=== PATIENT | female | born 1950 | race Caucasian/White ===

== ENCOUNTER 2017-03-12 10:15 | Emergency (ER) | payer MEDICARE, BC ==
[~2017-03-12] VITALS: Ht 157.5 cm; Wt 71.3 kg
[2017-03-12] MEDS ORDERED: KETOROLAC 30 MG/1 ML ONE (10:47)
[2017-03-12] MEDS ORDERED: FENTANYL PF 100 MCG/2ML ONE (10:47)
[2017-03-12] MEDS ORDERED: ONDANSETRON 2MG/ML, 2ML ONE (10:48)
[2017-03-12] MEDS ORDERED: SODIUM CHLORIDE 0.9% 1,000ML IVBOLUS ONE (11:00)
[2017-03-12] MEDS ORDERED: SODIUM CHLORIDE FLUSH 10ML SYR IVF ONE (11:00)
[2017-03-12] MEDS ORDERED: FENTANYL PF 100 MCG/2ML IVPush PRN (11:00)
[2017-03-12] MEDS ORDERED: KETOROLAC 30 MG/1 ML IVPush ONE (11:00)
[2017-03-12] MEDS ORDERED: ONDANSETRON 2MG/ML, 2ML IVPush ONE (11:00)
[2017-03-12 11:14] LABS: ASPARTATE AMINO TRANSFERASE 7 U/L (15-37); BLOOD UREA NITROGEN 19 mg/dL (7-18)
[2017-03-12] MEDS ORDERED: ACET250T2 PO (11:14)
[2017-03-12] MEDS ORDERED: CIPR500T87 PO (11:14)
[2017-03-12] MEDS ORDERED: MONT10TA6 PO (11:15)
[2017-03-12] MEDS ORDERED: HYDROcodone/APAP 5/325 TABLET PO ONE (11:30)
[2017-03-12] MEDS ORDERED: HYDROcodone/APAP 5/325 TABLET ONE (12:30)
[2017-03-12 13:14] VITALS: BP 129/88
== END 2017-03-12 13:16 | disposition home or self-care (01) ==
LOC: ED 11:23
DX: N20.2 Calculus of kidney with calculus of ureter (principal); E11.9 Type 2 diabetes mellitus without complications; J45.909 Unspecified asthma, uncomplicated; Z90.710 Acquired absence of both cervix and uterus; Z90.49 Acquired absence of other specified parts of digestive tract; Z88.6 Allergy status to analgesic agent; Z88.5 Allergy status to narcotic agent
CPT/HCPCS: 36415; 51701; 74176; 80053; 81001; 83605; 83690; 85025; 85610; 93005; 96361; 96374; 96375; 99285; J1885; J2405; J3010; J7030; P9612

== ENCOUNTER 2018-07-19 11:36 | Observation (INO) | payer BC, MEDICARE ==
[~2018-07-19] VITALS: Ht 157.5 cm; Wt 71.5 kg
[~2018-07-19 11:36] MED LIST: ACET250T2 PO; CIPR500T87 PO; MONT10TA6 PO
[2018-07-19] MEDS ORDERED: SODIUM CHLORIDE FLUSH 10ML SYR IVF ONE (12:00)
[2018-07-19 12:23] LABS: BASOPHILS % (AUTO) 1 % (0-1); EOSINOPHILS # (AUTO) 0.28 x10^3/uL (0-0.4); EOSINOPHILS % (AUTO) 4 % (1-7); LYMPHOCYTES # (AUTO) 3.22 x10^3/uL (1-3.4); LYMPHOCYTES % (AUTO) 41 % (22-44); MD NO; MEAN CORPUSCULAR HEMOGLOBIN 30.8 pg (27.0-34.8); MEAN CORPUSCULAR HGB CONC 34.8 g/dL (32.4-35.8); MEAN CORPUSCULAR VOLUME 88.7 fL (80-100); MEAN PLATELET VOLUME 8.6 fL (7.4-10.4); MONOCYTES # (AUTO) 0.47 x10^3/uL (0.2-0.8); MONOCYTES % (AUTO) 6 % (2-9); NEUTROPHILS # (AUTO) 3.82 x10^3/uL (1.8-6.8); NEUTROPHILS % (AUTO) 48 % (42-75); PLATELET COUNT 248 x10^3/uL (130-400); RED BLOOD COUNT 5.27 x10^6/uL (3.82-5.3)
[2018-07-19 12:32] LABS: ALBUMIN 3.6 g/dL (3.4-5.0); ANION GAP 4 mmol/L (5-15); CALCIUM 8.9 mg/dL (8.5-10.1); CHLORIDE 105 mmol/L (98-107)
[2018-07-19 12:33] LABS: CREATININE 1.02 mg/dL (0.55-1.02)
[2018-07-19] MEDS ORDERED: HYDROmorphone 2 MG/ML, 1ML IM ONE (14:00)
[2018-07-19] MEDS ORDERED: METHOCARBAMOL 500 MG TABLET PO ONE (14:00)
[2018-07-19] MEDS ORDERED: METHOCARBAMOL 750 MG TABLET ONE (14:05)
[2018-07-19] MEDS ORDERED: HYDROmorphone 2 MG/ML, 1ML ONE ×2 (14:06→17:02)
[2018-07-19] MEDS ORDERED: HYDROmorphone 1 MG/ML, 1ML IV ONE (14:30)
[2018-07-19 14:50] LABS: MICROSCOPIC NOT IND
[2018-07-19 14:53] LABS: CULTURE INDICATED? NO
[2018-07-19] MEDS ORDERED: SODIUM CHLORIDE 0.9% 1,000 ML IV SCH (17:17)
[2018-07-19] MEDS ORDERED: IBUPROFEN 600 MG TABLET PO PRN (17:30)
[2018-07-19] MEDS ORDERED: ENALAPRILAT 1.25 MG/ML, 2ML IVPush PRN (17:30)
[2018-07-19] MEDS ORDERED: DEXTROSE 50%, 50ML SYRINGE IVPush PRN (17:30)
[2018-07-19] MEDS ORDERED: LABETALOL 5MG/ML, 20ML IVPush PRN (17:30)
[2018-07-19] MEDS ORDERED: GLUCAGON 1 MG IM PRN (17:30)
[2018-07-19] MEDS ORDERED: ONDANSETRON ODT 4 MG PO PRN (17:30)
[2018-07-19] MEDS ORDERED: DEXTROSE 4 GM TAB.CHEW PO PRN (17:30)
[2018-07-19] MEDS ORDERED: LIDODERM 5% PATCH TD PRN (17:30)
[2018-07-19] MEDS ORDERED: ACETAMINOPHEN 325 MG TABLET PO PRN (17:30)
[2018-07-19] MEDS ORDERED: ONDANSETRON 2MG/ML, 2ML IVPush PRN (17:30)
[2018-07-19] MEDS: NICOTINE 7 MG/24 HR PATCH.TD24 TD SCH (17:30)
[2018-07-19] MEDS: INSULIN LISPRO 100 UNITS/ML, PEN SQ-INSULIN SCH ×2 (17:30→20:15)
[2018-07-19] MEDS ORDERED: DIPHENHYDRAMINE 25 MG CAPSULE PO PRN (17:30)
[2018-07-19] MEDS ORDERED: CELECOXIB MC SCH (18:00)
[2018-07-19] MEDS ORDERED: IBUPROFEN MC SCH (18:00)
[2018-07-19] MEDS ORDERED: KETOROLAC MC SCH (18:00)
[2018-07-19 18:10] LABS: HEMOGLOBIN A1C 9.8 % (4.2-6.3)
[2018-07-19 18:14] VITALS: BP 103/71
[2018-07-19] MEDS: HEPARIN 5,000 UNITS/ML, 1ML SQ SCH (18:28)
[2018-07-19 19:38] VITALS: BP 134/91
[2018-07-19] MEDS: SODIUM CHLORIDE FLUSH 10ML SYR IVF SCH (20:15)
[2018-07-19] MEDS: METHOCARBAMOL 500 MG TABLET PO PRN (22:42)
[2018-07-20] MEDS: KETOROLAC 30 MG/1 ML IV PRN ×2 (00:45→07:44)
[2018-07-20 01:10] VITALS: BP 139/87
[2018-07-20] MEDS: HEPARIN 5,000 UNITS/ML, 1ML SQ SCH ×2 (02:29→11:34)
[2018-07-20] MEDS: INSULIN LISPRO 100 UNITS/ML, PEN SQ-INSULIN SCH ×3 (07:44→16:48)
[2018-07-20 07:50] VITALS: BP 119/60
[2018-07-20] MEDS: METHOCARBAMOL 500 MG TABLET PO PRN (09:41)
[2018-07-20] MEDS: SODIUM CHLORIDE FLUSH 10ML SYR IVF SCH (09:41)
[2018-07-20] MEDS ORDERED: KETOROLAC 30 MG/1 ML IVPush ONE (12:00)
[2018-07-20 13:00] VITALS: BP 137/81
[2018-07-20] MEDS ORDERED: METH500T7 PO (14:59)
[2018-07-20] MEDS ORDERED: LIDO700A20 TD (15:11)
[2018-07-20] MEDS ORDERED: LIDODERM 5% PATCH TD ONE (16:00)
[2018-07-20] MEDS: NICOTINE 7 MG/24 HR PATCH.TD24 TD SCH (16:49)
[2018-07-20] MEDS ORDERED: KETOROLAC 30 MG/1 ML IV SCH (17:30)
== END 2018-07-20 18:44 | disposition home or self-care (01) ==
LOC: ED 14:12 → EDIP 16:18 → INTOOBSV 16:18 → 3NE 17:40
PROVIDERS: ADMIT Hospitalist; ATTEND Hospitalist
DX: M54.9 Dorsalgia, unspecified (principal); G89.11 Acute pain due to trauma; E11.65 Type 2 diabetes mellitus with hyperglycemia; G89.29 Other chronic pain; J98.11 Atelectasis; W01.0XXA Fall on same level from slipping, tripping and stumbling without subsequent striking against object, initial encounter; Y92.009 Unspecified place in unspecified non-institutional (private) residence as the place of occurrence of the external cause; Y93.89 Activity, other specified; Y99.8 Other external cause status
CPT/HCPCS: 36415; 71101; 72110; 73502; 80048; 81003; 82040; 82962; 83036; 85025; 93005; 96361; 96372; 96374; 96375; 96376; 97163; 97165; 99285; G0378; J1170; J1644; J1815; J1885; J7030

== ENCOUNTER 2021-03-09 16:56 | Emergency (ER) | payer MEDICARE ==
[~2021-03-09] VITALS: Ht 157.5 cm; Wt 59.2 kg
[~2021-03-09 16:56] MED LIST changes: +ASPI81TA45 PO; +ATOR40TA78 PO; +CLOP75TA PO; +FURO40TA6 PO; +LIDO700A20 TD; +LISI5TAB7 PO; +METH-639 PO; +METO25TA35 PO/NG; +POTA20TA6 PO; +PREG100C PO; +SUMA50TA3 PO; +TRAM50TA2 PO
--- NOTE | 2021-03-09 17:20 | NUR ---
assumed care of pt. pt here c/o N/V/D S/O at 0300 this AM pt reports that she is 3 weeks s/p CABG x3 with Dr. Rivas. pt reports that her F/U is scheduled in 2 days. pt has taken her last pain medication 2 days ago. pt is not currently vomiting. daughter at bedside pt has well healing well approximated vertical surgical inscision to sternum. no bleeding, no drainage noted
--- NOTE | 2021-03-09 17:37 | NUR ---
Dr Liu has been to bedside for eval
[2021-03-09] MEDS ORDERED: ONDANSETRON 2MG/ML, 2ML ONE (17:38)
[2021-03-09] MEDS ORDERED: SODIUM CHLORIDE 0.9% 1,000ML IVBOLUS ONE (18:00)
[2021-03-09] MEDS ORDERED: ONDANSETRON 2MG/ML, 2ML IVPush ONE (18:00)
--- NOTE | 2021-03-09 18:00 | NUR ---
pt has been medicated per order. warm blankets given and positioning for comfort. lights dimmed.
[2021-03-09 18:02] LABS: BASOPHILS % (AUTO) 1 % (0-1); EOSINOPHILS % (AUTO) 2 % (1-7); LYMPHOCYTES % (AUTO) 37 % (22-44); MEAN CORPUSCULAR HEMOGLOBIN 30.3 pg (27.0-34.8); MEAN CORPUSCULAR HGB CONC 34.5 g/dL (32.4-35.8); MEAN PLATELET VOLUME 8.6 fL (7.4-10.4); MONOCYTES % (AUTO) 9 % (2-9); NEUTROPHILS % (AUTO) 51 % (42-75); PLATELET COUNT 277 x10^3/uL (130-400); RED BLOOD COUNT 4.65 x10^6/uL (3.82-5.3); RED CELL DISTRIBUTION WIDTH 13.5 % (9.6-15.2)
[2021-03-09 18:03] LABS: MD NO
[2021-03-09 18:13] LABS: ALANINE AMINOTRANSFERASE 24 U/L (12-78); ALBUMIN 3.6 g/dL (3.4-5.0); ANION GAP 8 mmol/L (5-15); CHLORIDE 102 mmol/L (98-107); CREATININE 1.05 mg/dL (0.55-1.02)
[2021-03-09 18:14] VITALS: BP 123/81
[2021-03-09 18:18] LABS: ALKALINE PHOSPHATASE 124 U/L (45-117); BILIRUBIN,TOTAL 0.6 mg/dL (0.2-1.0); TOTAL PROTEIN 7.8 g/dL (6.4-8.2); TROPONIN I < 0.015 ng/mL (0.000-0.045)
--- NOTE | 2021-03-09 18:26 | NUR ---
pt reports that she feels better after meds a fluids. no vomiting sonce admit. no diarrhea. pt ambulated to BR without difficulty. well tolerated positioning for comfort. awaiting test results
--- NOTE | 2021-03-09 18:42 | NUR ---
Dr levy at bedside for recheck
--- NOTE | 2021-03-09 18:49 | NUR ---
report to Issa HUNTER
--- NOTE | 2021-03-09 18:56 | NUR ---
received report from ELSA Rodriguez
== END 2021-03-09 19:20 | disposition home or self-care (01) ==
LOC: ED 19:14
DX: K52.9 Noninfective gastroenteritis and colitis, unspecified (principal); R00.0 Tachycardia, unspecified
CPT/HCPCS: 36415; 80053; 83690; 84484; 85025; 93005; 96374; 99284; J2405; J7030